=== PATIENT | female | born 1945 | race Hispanic/Latino ===

== ENCOUNTER 2017-07-23 10:44 | Outpatient (CLI) | payer MEDICARE ==
--- NOTE | 2017-07-23 14:15 | XRay Report ---
XRAY LUMBAR SPINE WITH OBLIQUES FOUR VIEWS: 07/23/17 10:44:00 CLINICAL: Lumbar radicular pain. FINDINGS: Moderate dextroscoliosis centered at L2-3. L2-3 disc space narrowing and grade I L2-3 retrolisthesis. Vacuum disc phenomenon and moderate size osteophytes at that level. The rest of the bodies are normal alignment. Normal vertebral body height with no fractures identified. Large anterior osteophytes from T11-12 through L1-2. The pedicles are intact. Facet joint sclerosis at L3-4, L4-5 and L5-S1. Oblique views demonstrate moderate neural foraminal narrowing on the right side at multiple levels. Calcification of the abdominal aorta. IMPRESSION: Scoliosis and extensive degenerative change. Grade L2-3 degenerative disc disease and grade I L2-3 retrolisthesis. Multilevel neural foraminal stenosis on the right.
--- NOTE | 2017-07-23 14:17 | XRay Report ---
XRAY BILATERAL HIPS AND AP PELVIS THREE VIEWS: 07/23/17 CLINICAL: Trochanteric bursitis. FINDINGS: Right: No fracture or dislocation. Moderate osteoarthritis with narrowing of the superolateral joint space and a superolateral osteophyte. Normal soft tissues. Left: No fracture or dislocation. Moderate osteoarthritis with narrowing of the superolateral joint space and a superolateral osteophyte.Normal soft tissues. The pelvic bones are intact.Normal SI joints. IMPRESSION: Moderate bilateral hip osteoarthritis.
== END 2017-07-23 10:45 | disposition home or self-care (01) ==
LOC: SPVIMAG 10:44
PROVIDERS: ATTEND Internal Medicine
DX: M70.61 Trochanteric bursitis, right hip (principal); M54.16 Radiculopathy, lumbar region; M16.0 Bilateral primary osteoarthritis of hip; M41.86 Other forms of scoliosis, lumbar region; M47.896 Other spondylosis, lumbar region; M51.36 Other intervertebral disc degeneration, lumbar region; M48.061 Spinal stenosis, lumbar region without neurogenic claudication
CPT/HCPCS: 72100; 73521

== ENCOUNTER 2019-11-26 09:31 | Outpatient (CLI) | payer MEDICARE ==
--- NOTE | 2019-11-26 11:30 | XRay Report ---
RIGHT SHOULDER 3 VIEWS INDICATION: BURSITIS RIGHT SHOULDER [id number]. COMPARISON: No relevant prior imaging study available. FINDINGS: No acute skeletal abnormality. [id number]-[id number] glenohumeral and acromioclavicular degenerative ferris es are noted. No soft tissue calcifications are seen. IMPRESSION: 1. No acute findings. Signer Name: Brennen Kolb MD Signed: 11/26/2019 11:25 AM Workstation Name: [id number]
== END 2019-11-26 09:32 | disposition home or self-care (01) ==
LOC: SPVIMAG 09:31
PROVIDERS: ATTEND Internal Medicine
DX: M19.011 Primary osteoarthritis, right shoulder (principal); M75.51 Bursitis of right shoulder